=== PATIENT | male | born 1945 | race Caucasian/White ===

== ENCOUNTER 2020-05-24 07:31 | Outpatient (CLI) | payer MEDICARE, SELFPAY ==
--- NOTE | 2020-05-24 07:41 | ECHO_ITS ---
Patient Info Name: Francis Mccartney Age: 74 years : 1945 Gender: Male Ht: 70 in Wt: 168 lbs BSA: 1.95 m2 HR: 72 bpm BP: 184 / 69 mmHg Heart Rhythm: Atrial Fibrillation Exam Date: 05/24/2020 8:01 AM Exam Location: [facility] Patient Status: Outpatient Admit Date: 05/24/2020 Staff Ordering Physician: Darell Cash APRN Central Office Repairer: Lisy Dickson RDCS Attending Provider: Darell Cash APRN Referring Physician: Shailesh MORRISON; Exam Type: CA echo doppler color flow Study Info Indications I51.89 - Other ill-defined heart diseases Complete two-dimensional, color flow and Doppler transthoracic echocardiogram is performed. Summary 1. Complete two-dimensional, color flow and Doppler transthoracic echocardiogram is performed. 2. Normal left ventricular size with mild concentric hypertrophy. There is mild global hypokinesis present within measured ejection fraction of 48%. Diastolic dysfunction is present. No focal wall motion abnormalities. 3. Left atrial chamber dimension is moderately enlarged. 4. Right atrial chamber dimension is moderately enlarged. 5. Normal appearing bioprosthetic aortic valve. Peak velocity 2.3 m/sec, peak gradient 22 mm Hg, mean gradient 11 mm Hg, TOMMY 1.1-1.2 cm2. There is mild regurgitation of the bioprosthetic aortic valve, probably periprosthetic. 6. There is mild mitral valve regurgitation. 7. Mild pulmonary hypertension, estimated pulmonary arterial systolic pressure is 41 mmHg. 8. There is trace tricuspid valve regurgitation. 9. The rhythm is indeterminant. Left Ventricle Left ventricular chamber dimension is normal. Left ventricular systolic function is mildly reduced, estimated at 50-55%. There is mildly increased left ventricular wall thickness. Left ventricular septal wall motion is normal. The left ventricular diastolic function is abnormal. Right Ventricle Right ventricular chamber dimension is normal. Right ventricular systolic function is normal. Left Atria Left atrial chamber dimension is moderately enlarged. Right Atria Right atrial chamber dimension is moderately enlarged. Aortic Valve The TAVR aortic valve is trileaflet. There is no sclerosis of the TAVR aortic valve leaflets. There is no TAVR aortic valve stenosis. Normal appearing bioprosthetic aortic valve. Peak velocity 2.3 m/sec, peak gradient 22 mm Hg, mean gradient 11 mm Hg, TOMMY 1.1-1.2 cm2. There is mild regurgitation of the bioprosthetic aortic valve, probably periprosthetic. Pulmonic Valve The pulmonic valve is normal. There is no pulmonic valve stenosis. There is trace pulmonic regurgitation. Mitral Valve The mitral valve has thickened leaflets and calcified annulus. There is no mitral valve stenosis. There is mild mitral valve regurgitation. Tricuspid Valve The tricuspid valve leaflets are normal. There is no significant tricuspid valve stenosis. There is trace tricuspid valve regurgitation. Mild pulmonary hypertension, estimated pulmonary arterial systolic pressure is 41 mmHg. Pericardium/Pleural The pericardium appears normal. There is no pericardial effusion. Inferior Vena Cava Normal inferior vena cava with >50% collapse upon inspiration consistent with Empty right atrial pressure, 10 mmHg. Aorta The aortic root size at the sinus of Valsalva is normal. The prox ascending aorta size is normal. Left Ventricular Outflow Tract Name
== END 2020-05-24 07:32 | disposition home or self-care (01) ==
PROVIDERS: PCP Family Medicine; Visit Provider Nurse Practitioner Family
DX: I51.89 Other ill-defined heart diseases (principal); I34.0 Nonrheumatic mitral (valve) insufficiency
CPT/HCPCS: 93306

== ENCOUNTER 2021-04-27 10:02 | Emergency (ER) | payer MEDICARE, SELFPAY ==
[2021-04-27 10:10] VITALS: BP 179/61; PULSE 82; RESP 16; TEMP 36.4; O2SAT 99
--- NOTE | 2021-04-27 10:11 | ED.WOUNDLAC ---
HPI - Wound/Laceration General Chief Complaint: Wound/Laceration Stated Complaint: NON HEALING WOUNDS Time Seen by Provider: 04/27/21 10:11 Source: patient and RN notes reviewed Mode of arrival: ambulatory Limitations: no limitations History of Present Illness HPI narrative: 75-year-old male presents to the [facility] with complaints of wounds that are not healing. Has a skin tear to the left forearm and 4 skin tears to the right elbow since bumping them on the car door Friday, 5 days ago. has been cleaning and applying pressure dressings. Pt has a HX of low platelets, diabetes, radiation therapy for skin cancer, cardiac issues. States that his blood sugar was 84 this morning and is usually very well controlled Related Data Home Medications Medication Instructions Recorded Confirmed clopidogrel 75 mg tablet 75 mg PO DAILY 08/18/19 04/18/21 isosorbide mononitrate 60 mg 60 mg PO DAILY 09/20/19 04/18/21 tablet,extended release 24 hr uxsvnewfyldl-hbmgoalf-cdbpdl tablet 1 tablet PO DAILY 09/20/19 04/18/21 apixaban 5 mg tablet 5 mg PO BID tablet 09/26/19 04/18/21 furosemide 20 mg tablet 20 mg PO QAM 12/22/19 04/18/21 sacubitril 49 mg-valsartan 51 mg 1 tablet PO BID tablet 04/27/20 04/18/21 tablet gabapentin 300 mg capsule 600 mg PO BID cap 12/14/20 04/18/21 insulin aspart U-100 100 unit/mL See Rx Instructions SUBCUT TID 01/08/21 04/18/21 (3 mL) subcutaneous pen Allergies Allergy/AdvReac Type Severity Reaction Status Date / Time Sulfa (Sulfonamide Allergy Mild Rash Verified 04/27/21 11:58 Antibiotics) Broccoli Allergy Intermediate SWELLING Uncoded 12/14/20 09:02 OF FEET AND ANKLES Cauliflower Allergy Unknown SWELLING Uncoded 12/14/20 09:02 IN FEET AND ANKLES Review of Systems Review of Systems: All systems reviewed & are unremarkable except as noted in HPI and below Constitutional: Constitutional: Reports no additional constitutional complaints, Denies chills and Denies fever(s) Eyes: Eyes: Reports no additional eye complaints Respiratory: Respiratory: Reports no additional respiratory complaints Gastrointestinal: Gastrointestinal: Reports no additional gastrointestinal complaints Musculoskeletal: Musculoskeletal: Reports no additional musculoskeletal complaints Integumentary/Breasts: Skin/Breast: Reports as per HPI Comments: Skin tears Neurologic: Reports system reviewed and no additional complaints, except as documented Psychiatric: Psychiatric: Reports no additional psychiatric complaints Allergic/Immunologic: Allergic/Immunologic: Reports no additional allergic/immunologic complaints PENDING SALE TO [facility] Past Medical History Medical History Aortic stenosis Atrial fibrillation CAD (coronary artery disease), autologous vein bypass graft Diabetic polyneuropathy associated with type 2 diabetes mellitus Diastolic dysfunction Dyslipidemia Essential (primary) hypertension Peripheral arterial disease Pulmonary emboli Sleep apnea Type 2 diabetes mellitus with diabetic neuropathy, with long-term current use of insulin Surgical History Surgical History History of angioplasty of peripheral vessel (~2019) stent right popliteal artery 09/2018 stent left SFA (2005) History of coronary artery bypass graft 2009 History of coronary artery stent placement 02/2018 Status post transcatheter aortic valve replacement 04/2018 Family History Family History Father Diabetes mellitus Family history of cardiovascular disease Cerebrovascular accident Mother Hypertension Family history of arthritis Social History Social History Years smoked: 5.1 Smoking status: Former smoker Second hand tobacco smoke exposure: No Smoking end date: 09/08/72 Alcohol intake: current Comments At t
--- NOTE | 2021-04-27 14:32 | PC.NURSE ---
director of field service gave provider to provider report at [phone] to er, before transfer to er attempted to contact pmd without success at [phone], and then pt was given transfer sheet at [phone]
== END 2021-04-27 10:44 | disposition short-term general hospital (02) ==
PROVIDERS: Emergency Provider Nurse Practitioner; PCP Family Medicine
DX: S51.011A Laceration without foreign body of right elbow, initial encounter (principal); S51.812A Laceration without foreign body of left forearm, initial encounter; W22.8XXA Striking against or struck by other objects, initial encounter; Z79.01 Long term (current) use of anticoagulants; Z87.891 Personal history of nicotine dependence; I48.91 Unspecified atrial fibrillation; I25.10 Atherosclerotic heart disease of native coronary artery without angina pectoris; E11.21 Type 2 diabetes mellitus with diabetic nephropathy; E78.5 Hyperlipidemia, unspecified; I10 Essential (primary) hypertension; I73.9 Peripheral vascular disease, unspecified; Z86.711 Personal history of pulmonary embolism; G47.30 Sleep apnea, unspecified; Z79.4 Long term (current) use of insulin; I35.0 Nonrheumatic aortic (valve) stenosis
CPT/HCPCS: 99212; G0463

== ENCOUNTER 2021-04-27 11:12 | Emergency (ER) | payer MEDICARE, SELFPAY ==
[2021-04-27 11:39] VITALS: BP 132/58; PULSE 73; RESP 16; TEMP 36.3; O2SAT 100
--- NOTE | 2021-04-27 13:17 | ED.WOUNDLAC ---
HPI - Wound/Laceration General Chief Complaint: Wound/Laceration Stated Complaint: bleeding from express care Time Seen by Provider: 04/27/21 12:12 Source: patient Mode of arrival: ambulatory Limitations: no limitations History of Present Illness HPI narrative: This is a 75 year old male that presents to the ER for wound present to the right arm over the last week. Reports he was hit with a car door. Reports a skin tear to the arm that he cannot get to stop bleeding. He was sent here from urgent care for further evaluation. He is on Apixaban for Afib. Denies fever or erythema. Related Data Home Medications Medication Instructions Recorded Confirmed clopidogrel 75 mg tablet 75 mg PO DAILY 08/18/19 04/18/21 isosorbide mononitrate 60 mg 60 mg PO DAILY 09/20/19 04/18/21 tablet,extended release 24 hr exyregoihsee-pllnqntv-buiwlc tablet 1 tablet PO DAILY 09/20/19 04/18/21 apixaban 5 mg tablet 5 mg PO BID tablet 09/26/19 04/18/21 furosemide 20 mg tablet 20 mg PO QAM 12/22/19 04/18/21 sacubitril 49 mg-valsartan 51 mg 1 tablet PO BID tablet 04/27/20 04/18/21 tablet gabapentin 300 mg capsule 600 mg PO BID cap 12/14/20 04/18/21 insulin aspart U-100 100 unit/mL See Rx Instructions SUBCUT TID 01/08/21 04/18/21 (3 mL) subcutaneous pen Allergies Allergy/AdvReac Type Severity Reaction Status Date / Time Sulfa (Sulfonamide Allergy Mild Rash Verified 04/27/21 11:58 Antibiotics) Broccoli Allergy Intermediate SWELLING Uncoded 12/14/20 09:02 OF FEET AND ANKLES Cauliflower Allergy Unknown SWELLING Uncoded 12/14/20 09:02 IN FEET AND ANKLES Review of Systems Review of Systems: CONSTITUTIONAL: Denies fever SKIN: Reports skin tear All systems reviewed & are unremarkable except as noted in HPI and below PMFSH Past Medical History Medical History Aortic stenosis Atrial fibrillation CAD (coronary artery disease), autologous vein bypass graft Diabetic polyneuropathy associated with type 2 diabetes mellitus Diastolic dysfunction Dyslipidemia Essential (primary) hypertension Peripheral arterial disease Pulmonary emboli Sleep apnea Type 2 diabetes mellitus with diabetic neuropathy, with long-term current use of insulin Surgical History Surgical History History of angioplasty of peripheral vessel (~2019) stent right popliteal artery 09/2018 stent left SFA (2005) History of coronary artery bypass graft 2010 History of coronary artery stent placement 02/2018 Status post transcatheter aortic valve replacement 04/2018 Family History Family History Father Diabetes mellitus Family history of cardiovascular disease Cerebrovascular accident Mother Hypertension Family history of arthritis Social History Social History Years smoked: 5.1 Smoking status: Former smoker Second hand tobacco smoke exposure: No Smoking end date: 09/08/72 Alcohol intake: current Exam Narrative: GENERAL: Well-appearing, well-nourished, and in no acute distress. HEAD: Normocephalic, atraumatic. EYES: EOMI. EXTREMITIES: Normal range of motion. No edema. Right upper arm with 2cm irregular skin tear with mild oozing SKIN: Warm, dry, no rash. NEURO: No focal deficits. Alert and oriented x3. PSYCH: Normal mood and affect Course Vital Signs Vital signs: Vital Signs Temperature 97.3 F L 04/27/21 11:39 Pulse Rate 73 04/27/21 11:39 Respiratory Rate 16 04/27/21 11:39 Blood Pressure 132/58 L 04/27/21 11:39 Pulse Oximetry 100 04/27/21 11:39 Temperature 97.3 F L 04/27/21 11:39 Pulse Rate 73 04/27/21 11:39 Respiratory Rate 16 04/27/21 11:39 Blood Pressure 132/58 L 04/27/21 11:39 Pulse Oximetry 100 04/27/21 11:39 Procedures Laceration Laceration 1: Date: 04/27/21 Ti
[2021-04-27 13:45] LABS: Basophils Absolute Auto 0.1 K/mm3 (0.0-0.1); Basophils Percent Auto 0.6 % (0.2-1.2); Eosinophils Absolute Auto 0.1 K/mm3 (0-0.3); Eosinophils Percent Auto 0.9 % (0-4.4); Hematocrit 34.9 % (42.0-52.0); Hemoglobin 11.2 g/dL (14.0-18.0); Immature Granulocyte Absolute 0.04 K/mm3 (0.00-0.031); Immature Granulocyte Percent A 0.4 % (0-0.5); Lymphocytes Absolute Auto 0.94 K/mm3 (0.9-3.2); Lymphocytes Percent Auto 8.7 % (18.3-44.2); Mean Corpuscular HGB Conc 32.1 g/dl (32-36); Mean Corpuscular Hemoglobin 28.6 pg (26-34); Mean Platelet Volume 10.2 fl (7.4-10.4); Monocytes Absolute Auto 0.8 K/mm3 (0.1-0.6); Monocytes Percent Auto 7.6 % (2.6-8.5); Neutrophils Absolute Auto 8.8 K/mm3 (1.3-6.7); Neutrophils Percent Auto 81.8 % (45.5-73.1); Platelet Count Result 145 k/mm3 (150-375); Red Blood Count 3.92 M/mm3 (4.6-6.20); Red Cell Distribution Width 14.3 % (11.5-14.5); White Blood Count 10.8 K/mm3 (4.5-10.0)
[2021-04-27 13:55] LABS: INR 1.3; Partial Thromboplastin Time 34.2 SECONDS (22.3-36.8); Prothrombin Time 16.4 Seconds (11.1-14.7)
[2021-04-27 14:37] VITALS: BP 132/80; PULSE 78; RESP 18; O2SAT 99
== END 2021-04-27 14:39 | disposition home or self-care (01) ==
PROVIDERS: Physician Assistant; Emergency Provider Emergency Medicine; PCP Family Medicine
DX: S41.111A Laceration without foreign body of right upper arm, initial encounter (principal); I48.91 Unspecified atrial fibrillation; I25.10 Atherosclerotic heart disease of native coronary artery without angina pectoris; E11.42 Type 2 diabetes mellitus with diabetic polyneuropathy; E78.5 Hyperlipidemia, unspecified; I10 Essential (primary) hypertension; E11.51 Type 2 diabetes mellitus with diabetic peripheral angiopathy without gangrene; G47.30 Sleep apnea, unspecified; W22.8XXA Striking against or struck by other objects, initial encounter; Z86.711 Personal history of pulmonary embolism; Z79.4 Long term (current) use of insulin
CPT/HCPCS: 12001; 36415; 85025; 85610; 85730; 99283

== ENCOUNTER 2021-06-14 12:23 | Outpatient (CLI) | payer MEDICARE, SELFPAY ==
--- NOTE | 2021-06-14 12:50 | ECHO_ITS ---
Patient Info Name: Francis Mccartney Age: 75 years : 1945 Gender: Male Ht: 70 in Wt: 173 lbs BSA: 1.98 m2 HR: 72 bpm BP: 173 / 92 mmHg Heart Rhythm: Atrial Fibrillation Exam Date: 06/14/2021 1:02 PM Exam Location: [facility] Patient Status: Outpatient Admit Date: 06/14/2021 Staff Ordering Physician: Darell Cash APRN Object Oriented Programmer: Lisy Dickson RDCS Attending Provider: Darell Cash APRN Referring Physician: Shailesh MORRISON; Exam Type: CA echo doppler color flow Study Info Indications I48.1 - Persistent atrial fibrillation - AORTIC VALVE REPLACEMENT I50.9 - Heart failure, unspecified Complete two-dimensional, color flow and Doppler transthoracic echocardiogram is performed. Summary 1. Complete two-dimensional, color flow and Doppler transthoracic echocardiogram is performed. 2. Left ventricular chamber dimension is mildly enlarged. 3. Left ventricular systolic function is mild to moderatelyreduced, estimated at 40-45%. 4. There is severely increased left ventricular wall thickness. 5. The left ventricular diastolic function is abnormal. 6. Left atrial chamber dimension is severely enlarged. 7. Right atrial chamber dimension is moderately enlarged. 8. There is mild to moderate bioprosthetic aortic valve stenosis with a peak velocity of 219 cm/s, mean gradient of 7 mmHg, and aortic valve area of 1.3 cm2. Normal gradients for valve type and size. 9. There is mild aortic valve regurgitation which appears perivalvular. 10. The mitral valve has thickened leaflets and calcified leaflets. 11. There is moderate mitral valve regurgitation. 12. There is mild tricuspid valve regurgitation. 13. Moderate pulmonary hypertension, estimated pulmonary arterial systolic pressure is 53 mmHg. 14. There is mild pulmonic regurgitation. Left Ventricle Left ventricular chamber dimension is mildly enlarged. Left ventricular systolic function is mild to moderatelyreduced, estimated at 40-45%. There is severely increased left ventricular wall thickness. The left ventricular diastolic function is abnormal. Right Ventricle Right ventricular chamber dimension is normal. Right ventricular systolic function is normal. Left Atria Left atrial chamber dimension is severely enlarged. Right Atria Right atrial chamber dimension is moderately enlarged. Atrial Septum Intact interatrial septum visualized by color flow imaging. Aortic Valve There is mild aortic valve regurgitation which appears perivalvular. There is mild to moderate bioprosthetic aortic valve stenosis with a peak velocity of 219 cm/s, mean gradient of 7 mmHg, and aortic valve area of 1.3 cm2. Normal gradients for valve type and size. There is mild regurgitation of the bioprosthetic aortic valve. Pulmonic Valve The pulmonic valve is normal. There is no pulmonic valve stenosis. There is mild pulmonic regurgitation. Mitral Valve The mitral valve has thickened leaflets and calcified leaflets. There is no mitral valve stenosis. There is moderate mitral valve regurgitation. Tricuspid Valve The tricuspid valve leaflets are normal. There is no significant tricuspid valve stenosis. There is mild tricuspid valve regurgitation. Moderate pulmonary hypertension, estimated pulmonary arterial systolic pressure is 53 mmHg. Pericardium/Pleural The pericardium appears normal. There is no pericardial effusion. Inferior Vena Cava Dilated inferior vena cava with <50% collapse upon inspiration con
== END 2021-06-14 12:24 | disposition home or self-care (01) ==
PROVIDERS: PCP Family Medicine; Visit Provider Nurse Practitioner Family
DX: G47.31 Primary central sleep apnea (principal); I50.9 Heart failure, unspecified; I08.3 Combined rheumatic disorders of mitral, aortic and tricuspid valves
CPT/HCPCS: 93306

== ENCOUNTER 2021-08-04 11:42 | Emergency (ER) | payer MEDICARE, SELFPAY ==
--- NOTE | ~2021-08-04 | XR_ITS ---
EXAMINATION: XR humerus RT INDICATION: Right arm pain, initial encounter TECHNIQUE: Two views of the right humerus are obtained on four radiographs. COMPARISON: None available FINDINGS: There is an acute, traumatic, oblique, minimally inferiorly displaced fracture of the dista l clavicle. Alignment at the glenohumeral joint is normal. No additional acute osseous findings are e vident. IMPRESSION: 1. Minimally displaced distal clavicle fracture. Reviewed, dictated and finalized at location A. [facility]
--- NOTE | ~2021-08-04 | CT_ITS ---
EXAMINATION: CT brain wo con INDICATION: Headache COMPARISON: None TECHNIQUE: Standard unenhanced head CT. The dose-length product (DLP) was 605.33 mGy-cm. The mA was a djusted according to patient size. Iterative reconstruction technique was employed. FINDINGS: There is no acute intraparenchymal hemorrhage. No evidence of mass lesion. No evidence of a cute infarction. 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 There are also old infarcts of the caudate nuclei. There is mild periventricular and subcortical hypodensity probably related to small vessel is chemic disease. There is mild prominence of the sulci and ventricles related to cerebral atrophy. Int racranial calcified cerebral atherosclerosis is noted. There are no extra-axial collections. There is no mass effect or midline shift. The orbits and soft tissues are unremarkable. There is mild mucosal thickening of the paranasal sinuses. IMPRESSION: 1. Areas of prior infarction without acute intracranial abnormality. 2. Age related findings. Reviewed, dictated and finalized at location A. ING SUPERVISOR
[2021-08-04 11:44] VITALS: BP 179/74; PULSE 82; RESP 16; TEMP 36.2; O2SAT 96
--- NOTE | 2021-08-04 12:43 | ED.FALL ---
HPI - Fall General Chief Complaint: Fall Stated Complaint: fall, righ shoulder pain Time Seen by Provider: 08/04/21 12:00 Source: patient History of Present Illness HPI Narrative: Patient presents after a fall. Patient reports he was changing a lesion on his dog when he leaned over too far and fell onto his right shoulder. Reports he did strike his head and is on Eliquis denies any loss of consciousness. Reports primarily his pain is on his right shoulder. He feels like he broke it. His pain is achy, constant, no radiation, worse with moving his right shoulder. Denies any headache, change in vision, focal numbness or weakness. Related Data Home Medications Medication Instructions Recorded Confirmed clopidogrel 75 mg tablet 75 mg PO DAILY 08/18/19 06/18/21 isosorbide mononitrate 60 mg 60 mg PO DAILY 09/20/19 06/18/21 tablet,extended release 24 hr miafocqijbmc-etrcfucf-phzomh tablet 1 tablet PO DAILY 09/20/19 06/18/21 apixaban 5 mg tablet 5 mg PO BID tablet 09/26/19 06/18/21 furosemide 20 mg tablet 20 mg PO QAM 12/22/19 06/18/21 sacubitril 49 mg-valsartan 51 mg 1 tablet PO BID tablet 04/27/20 06/18/21 tablet gabapentin 300 mg capsule 600 mg PO BID cap 12/14/20 06/18/21 insulin aspart U-100 100 unit/mL See Rx Instructions SUBCUT TID 01/08/21 06/18/21 (3 mL) subcutaneous pen insulin degludec 100 unit/mL (3 33 unit SUBCUT DAILY ml 06/18/21 06/18/21 mL) subcutaneous pen pravastatin 40 mg tablet 40 mg PO QHS tablet 06/18/21 06/18/21 Allergies Allergy/AdvReac Type Severity Reaction Status Date / Time Sulfa (Sulfonamide Allergy Mild Rash Verified 08/04/21 11:52 Antibiotics) Broccoli Allergy Intermediate SWELLING Uncoded 08/04/21 11:52 OF FEET AND ANKLES Cauliflower Allergy Unknown SWELLING Uncoded 08/04/21 11:52 IN FEET AND ANKLES Review of Systems Review of Systems: CONSTITUTIONAL: Denies fever, chills, or sweats. EYES: Denies visual changes, redness, or discharge. ENT: Denies rhinorrhea, congestion, sore throat, or otalgia. CARDIOVASCULAR: Denies chest pain, palpitations, or edema. RESPIRATORY: Denies cough or dyspnea. GASTROINTESTINAL: Denies abdominal pain, nausea, vomiting, or diarrhea. GENITOURINARY: Denies dysuria or hematuria. SKIN: Denies rash or itching. MUSCULOSKELETAL: Denies back pain, joint pain, or myalgia. NEUROLOGIC: Denies headache, numbness, dizziness, or weakness. PSYCHIATRIC: Denies anxiety or depression. All systems reviewed & are unremarkable except as noted in HPI and below PMFSH Past Medical History Medical History Aortic stenosis Atrial fibrillation CAD (coronary artery disease), autologous vein bypass graft Diabetic polyneuropathy associated with type 2 diabetes mellitus Diastolic dysfunction Dyslipidemia Essential (primary) hypertension Peripheral arterial disease Pulmonary emboli Sleep apnea Type 2 diabetes mellitus with diabetic neuropathy, with long-term current use of insulin Surgical History Surgical History History of angioplasty of peripheral vessel (~2019) stent right popliteal artery 09/2018 stent left SFA (2005) History of coronary artery bypass graft 2009 History of coronary artery stent placement 02/2018 Status post transcatheter aortic valve replacement 04/2018 Family History Family History Father Diabetes mellitus Family history of cardiovascular disease Cerebrovascular accident Mother Hypertension Family history of arthritis Social History Social History Years smoked: 5.1 Smoking status: Former smoker Second hand tobacco smoke exposure: No Smoking end date: 09/08/72 Alcohol intake: current Substance use: never Substance use type: does not use Additional living arrangements comments:
== END 2021-08-04 13:25 | disposition home or self-care (01) ==
PROVIDERS: Emergency Provider Emergency Medicine; PCP Family Medicine
DX: S42.031A Displaced fracture of lateral end of right clavicle, initial encounter for closed fracture (principal); I48.91 Unspecified atrial fibrillation; I25.10 Atherosclerotic heart disease of native coronary artery without angina pectoris; I35.0 Nonrheumatic aortic (valve) stenosis; E11.42 Type 2 diabetes mellitus with diabetic polyneuropathy; E11.51 Type 2 diabetes mellitus with diabetic peripheral angiopathy without gangrene; I10 Essential (primary) hypertension; G47.30 Sleep apnea, unspecified; Z86.711 Personal history of pulmonary embolism; Z95.5 Presence of coronary angioplasty implant and graft; Z95.1 Presence of aortocoronary bypass graft; Z95.2 Presence of prosthetic heart valve; Z79.4 Long term (current) use of insulin; Z79.01 Long term (current) use of anticoagulants; Z87.891 Personal history of nicotine dependence; W18.39XA Other fall on same level, initial encounter
CPT/HCPCS: 70450; 73060; 99284

== ENCOUNTER 2022-02-28 10:46 | Outpatient (CLI) | payer MEDICARE, SELFPAY ==
[2022-02-28 12:59] LABS: Creatinine Urine 72.8 mg/dL; HDL Direct 28 mg/dL
[2022-02-28 13:05] LABS: MALB Creatinine Ratio 20.6 mg/g (0-30)
[2022-02-28 13:10] LABS: LDL Cholesterol Direct 44 mg/dL
== END 2022-02-28 10:47 | disposition home or self-care (01) ==
LOC: ANHWCLAB 10:48
PROVIDERS: PCP Family Medicine; Visit Provider Internal Medicine Endocrinology, Diabetes & Metabolism
DX: E11.40 Type 2 diabetes mellitus with diabetic neuropathy, unspecified (principal); Z79.4 Long term (current) use of insulin
CPT/HCPCS: 36415; 82043; 82607; 83718; 83721; 84443

== ENCOUNTER 2022-06-26 10:47 | Outpatient (CLI) | payer MEDICARE, SELFPAY ==
--- NOTE | ~2022-06-26 | XR_ITS ---
EXAMINATION: XR hip RT 2V w AP pelvis INDICATION: Right hip pain TECHNIQUE: AP view of the pelvis and two views of the right hip are obtained. COMPARISON: None available FINDINGS: There is moderate osteoarthritis of the hips. Bone alignment is normal. There is no fractur e. Calcified atherosclerosis is noted. IMPRESSION: 1. Moderate osteoarthritis of the hips. Reviewed, dictated and finalized at location A.
== END 2022-06-26 10:48 | disposition home or self-care (01) ==
PROVIDERS: PCP Family Medicine; Visit Provider Family Medicine
DX: M16.11 Unilateral primary osteoarthritis, right hip (principal)
CPT/HCPCS: 73502

== ENCOUNTER 2022-08-12 00:50 | Day surgery (SDC) | payer MEDICARE, SELFPAY ==
[2022-07-29 11:03] VITALS: BMI 25.0
[2022-08-12 08:01] VITALS: BP 135/59; PULSE 55; RESP 20; TEMP 36.3; O2SAT 98
[2022-08-12] MEDS: LACTATED RINGERS 1,000 ML 150 ML IV CONT (08:12)
[2022-08-12] MEDS: GENTAMICIN 80MG/SOD CHL 50 ML 80 MG/50 ML BAG 100 MG IVPB (08:13)
--- NOTE | 2022-08-12 08:14 | WPDANESEPPF ---
Anes - Initial Pre Proc Eval Procedure: Operation Date: 08/12/22 09:00 Proposed Procedures p Screening Colonoscopy - Derik Anguiano MD Date/Time: 08/12/22 08:14 Surgeon: Derik Anguiano MD Pre Op Diagnosis: Hx of colon polyps Patient Data Age: 76 Gender: M Height: 1.78 m Weight: 73.8 kg Last Vital Signs Temp 36.3 C L 08/12/22 08:01 Pulse 55 L 08/12/22 08:01 Resp 20 08/12/22 08:01 BP 135/59 L 08/12/22 08:01 Pulse Ox 98 08/12/22 08:01 O2 Del Method Room Air 08/12/22 08:01 Allergies Allergy/AdvReac Type Severity Reaction Status Date / Time Sulfa (Sulfonamide Allergy Mild Rash Verified 08/12/22 07:59 Antibiotics) Broccoli Allergy Intermediate SWELLING Uncoded 08/12/22 07:59 OF FEET AND ANKLES Cauliflower Allergy Unknown SWELLING Uncoded 08/12/22 07:59 IN FEET AND ANKLES Home Medications Medication Instructions Recorded Confirmed Type clopidogrel 75 mg tablet 75 mg PO DAILY 08/18/19 07/29/22 History isosorbide mononitrate 60 mg 60 mg PO DAILY 09/20/19 07/29/22 History tablet,extended release 24 hr twgsqjyycbxl-mihpmcde-yoprgw 1 tablet PO DAILY 09/20/19 07/29/22 History tablet (Vitrum Senior tablet) apixaban 5 mg tablet (Eliquis) 5 mg PO BID 09/26/19 07/29/22 History furosemide 20 mg tablet 20 mg PO QAM 12/22/19 07/29/22 History lancets 33 gauge (OneTouch Delica #400 ea 07/11/20 07/29/22 Rx Lancets) glucagon HCl 1 mg solution for 1 mg subcut ONCE PRN hypoglycemia 08/10/20 07/29/22 Rx injection (Glucagon (HCl) #1 ea Emergency Kit) gabapentin 300 mg capsule 600 mg PO BID 12/14/20 07/29/22 History blood sugar diagnostic (OneTouch #400 ea 01/08/21 07/29/22 Rx Verio test strips) blood-glucose meter,continuous #1 ea 01/08/21 07/29/22 Rx (Dexcom G6 Rn Labor And Delivery misc) blood-glucose sensor (Dexcom G6 #9 ea 01/08/21 07/29/22 Rx Sensor device) blood-glucose transmitter (Dexcom #1 ea 01/08/21 07/29/22 Rx G6 Transmitter device) pravastatin 40 mg tablet 40 mg PO QHS 06/18/21 07/29/22 History metoprolol succinate 50 mg 50 mg PO BID 12/18/21 07/29/22 History tablet,extended release 24 hr pen needle, diabetic 31 gauge x #400 ea 02/28/22 07/29/22 Rx 5/16 (BD Ultra-Fine Short Pen Needle) insulin aspart U-100 100 unit/mL See Rx Instructions subcut TID 03/26/22 07/29/22 History (3 mL) subcutaneous pen (Novolog Flexpen U-100 Insulin aspart) duloxetine 60 mg capsule,delayed 60 mg PO DAILY 06/25/22 07/29/22 History release insulin degludec 100 unit/mL (3 See Rx Instructions .Route .COMPLEX 06/25/22 07/29/22 History mL) subcutaneous pen (Tresiba FlexTouch U-100 insulin) metformin 500 mg tablet See Rx Instructions .Route 07/29/22 07/29/22 Rx .COMPLEX #180 tabs sacubitril 49 mg-valsartan 51 mg 1 tablet PO BID 07/29/22 07/29/22 History tablet (Entresto) Patient hx anesthesia problems: none Family hx anesthesia problems: none Results Review: All pre-operative results and documents have been reviewed as part of the pre-operative evaluation. [facility] Past Medical History Medical History Aortic stenosis Atrial fibrillation CAD (coronary artery disease), autologous vein bypass graft Diabetic polyneuropathy associated with type 2 diabetes mellitus Diastolic dysfunction Dyslipidemia Essential (primary) hypertension Peripheral arterial disease Pulmonary emboli Sleep apnea Type 2 diabetes mellitus with diabetic neuropathy, with long-term current use of insulin Surgical History Surgical History History of angioplasty of peripheral vessel (~2019) stent right popliteal artery 09/2018 stent left SFA (2005) History of coronary artery bypass graft 2009 History of coronary artery stent placement 02/2018 Status post transcatheter aortic valve replacement 04/2018 Family History Fami
[2022-08-12 08:19] LABS: Glucose Point of Care 75 mg/dl (65-105)
--- NOTE | 2022-08-12 08:36 | PM.HPGS ---
History of Present Illness History of Present Illness Consent: Risks, benefits, and alternatives have been discussed and questions answered. Patient agrees to proceed with procedure. Chief complaint: Hx of colon polyps Narrative: Francis Mccartney is a 76 year old male with colon polyps in 2019 Review of Systems Constitutional: Constitutional: Denies headache(s) and Denies weakness Eyes: Eyes: Denies blurry vision ENT: Reports Normal hearing present, Denies headache(s) and Denies neck pain Cardiovascular: Cardiovascular: Denies chest pain and Denies dyspnea Respiratory: Respiratory: Denies dyspnea Gastrointestinal: Gastrointestinal: Reports no additional gastrointestinal complaints Genitourinary: Genitourinary: Denies dysuria Musculoskeletal: Musculoskeletal: Denies neck pain Integumentary/Breasts: Skin/Breast: Denies dry skin Neurologic: Reports Normal hearing present, Denies headache(s) and Denies weakness Psychiatric: Psychiatric: Denies anxiety Endocrine: Endocrine: Denies change in body appearance Hematologic/Lymphatic: Hematologic/Lymphatic: Denies easy bleeding Allergic/Immunologic: Allergic/Immunologic: Denies urticaria PMFSH Past Medical History Medical History (Updated 08/12/22 @ 08:37 by Derik Anguiano MD) Adenomatous colon polyp Aortic stenosis Atrial fibrillation CAD (coronary artery disease), autologous vein bypass graft Diabetic polyneuropathy associated with type 2 diabetes mellitus Diastolic dysfunction Dyslipidemia Essential (primary) hypertension Peripheral arterial disease Pulmonary emboli Sleep apnea Type 2 diabetes mellitus with diabetic neuropathy, with long-term current use of insulin Surgical History Surgical History History of angioplasty of peripheral vessel (~2019) stent right popliteal artery 09/2018 stent left SFA (2005) History of coronary artery bypass graft 2009 History of coronary artery stent placement 02/2018 Status post transcatheter aortic valve replacement 04/2018 Family History Family History Father Diabetes mellitus Family history of cardiovascular disease Cerebrovascular accident Mother Hypertension Family history of arthritis Social History Social History Years smoked: 5 Smoking status: Former smoker Second hand tobacco smoke exposure: No Smoking end date: 09/08/72 Additional smoking assessment comments: has not smoked since he was 24 Alcohol intake: current Substance use: never Substance use type: does not use Lack of Transportation: No Lack of Food: Never True Current Housing: I Have Housing Concerned About Future Housing: No Difficulty Paying Gas/Electric Bills: No Difficulty Paying for Meds: No Currently Unemployed: No Education: Master's Degree or Higher Difficulty w/ Childcare or Family Care: No Living arrangements: with family Additional living arrangements comments: Gender identity (if verbalized by the patient): Male Sexual Orientation (if Verbalized by the Patient): Straight or Heterosexual Meds Home Medications and Allergies Home Medications Medication Instructions Recorded Confirmed Type clopidogrel 75 mg tablet 75 mg PO DAILY 08/18/19 07/29/22 History isosorbide mononitrate 60 mg 60 mg PO DAILY 09/20/19 07/29/22 History tablet,extended release 24 hr [id number]-[id number] 1 tablet PO DAILY 09/20/19 07/29/22 History tablet (Vitrum Senior tablet) apixaban 5 mg tablet (Eliquis) 5 mg PO BID 09/26/19 07/29/22 History furosemide 20 mg tablet 20 mg PO QAM 12/22/19 07/29/22 History lancets 33 gauge (OneTouch Delica #400 ea 07/11/20 07/29/22 Rx Lancets) glucagon HCl 1 mg solution for 1 mg subcut ONCE PRN hypoglycemia 08/10/20 07/29/22 Rx injection (Glucagon (HCl) #1 ea Emergency [facility]
[2022-08-12] MEDS: AMPICILLIN 2 GM/NS 100 ML 2 GM/100 ML BAG IVPB (08:38)
[2022-08-12 09:09] VITALS: BP 104/45; PULSE 71; RESP 17; O2SAT 95
[2022-08-12 09:19] VITALS: BP 97/62; PULSE 67; RESP 22; O2SAT 97
[2022-08-12 09:29] VITALS: BP 112/59; PULSE 68; RESP 20; O2SAT 96
[2022-08-12 09:36] LABS: Glucose Point of Care 69 mg/dl (65-105)
[2022-08-12 09:55] LABS: Glucose Point of Care 69 mg/dl (65-105)
[2022-08-12 09:55] LABS: Glucose Point of Care 86 mg/dl (65-105)
== END 2022-08-12 09:56 | disposition home or self-care (01) ==
PROVIDERS: PCP Family Medicine; Visit Provider Internal Medicine Gastroenterology
PROC: 0DJD8ZZ Inspection of Lower Intestinal Tract, Via Natural or Artificial Opening Endoscopic (ICD-10-PCS; CPT 45378; principal; 2022-08-12 09:00)
DX: Z12.11 Encounter for screening for malignant neoplasm of colon (principal); K57.30 Diverticulosis of large intestine without perforation or abscess without bleeding; Z86.010 Personal history of colon polyps; I48.91 Unspecified atrial fibrillation; I25.10 Atherosclerotic heart disease of native coronary artery without angina pectoris; E11.42 Type 2 diabetes mellitus with diabetic polyneuropathy; I11.9 Hypertensive heart disease without heart failure; E11.51 Type 2 diabetes mellitus with diabetic peripheral angiopathy without gangrene; G47.30 Sleep apnea, unspecified; E78.5 Hyperlipidemia, unspecified; Z86.711 Personal history of pulmonary embolism; Z95.1 Presence of aortocoronary bypass graft; Z95.4 Presence of other heart-valve replacement; Z95.5 Presence of coronary angioplasty implant and graft; Z95.820 Peripheral vascular angioplasty status with implants and grafts; Z79.02 Long term (current) use of antithrombotics/antiplatelets; Z79.01 Long term (current) use of anticoagulants; Z79.4 Long term (current) use of insulin; Z79.84 Long term (current) use of oral hypoglycemic drugs
CPT/HCPCS: G0105; 82948; J0290; J1580; J2704; J7120